=== PATIENT | female | born 1975 | race Two or more races ===

== ENCOUNTER 2020-04-15 19:33 | Emergency (ER) | payer OTHER, MEDICAID ==
[~2020-04-15] VITALS: Ht 167.6 cm; Wt 68.0 kg
[2020-04-15 20:10] VITALS: BP 169/99
[2020-04-15 20:25] LABS: Basophils # (auto) 0.1 10 ^3/uL (0-0.2); Basophils % (auto) 1.1 % (0.0-2.0); Eosinophils # (auto) 0.1 10 ^3/uL (0-0.8); Eosinophils % (auto) 1.7 % (0.0-7.0); Hematocrit 39.9 % (36.0-46.0); Hemoglobin 13.4 g/dL (12.2-16.2); Lymphocytes # (auto) 2.4 10 ^3/uL (0.4-5.4); Lymphocytes % (auto) 30.3 % (10.0-50.0); Mean Corpuscular Hemoglobin 29.2 pg (28.0-32.0); Mean Corpuscular Hgb Conc. 33.5 g/dL (32.0-36.0); Monocytes # (auto) 0.4 10 ^3/uL (0-1.3); Neutrophils % (auto) 61.9 % (37.0-80.0); Nucleated Red Blood Cells % 0.1 %; Platelet Count (auto) 354 10^3/uL (140-450); Red Blood Cells 4.59 10^6/uL (4.0-5.20); Red Cell Distribution Width 13.7 % (11.8-14.3)
[2020-04-15 20:42] LABS: Chloride 109 mmol/L (98-107); Potassium 3.2 mmol/L (3.5-5.1); Sodium 140 mmol/L (136-145)
[2020-04-15 20:44] LABS: INR 0.97 (0.9-1.15); Partial Thromboplastin Time 25.1 sec (23.0-31.2)
[2020-04-15 20:51] LABS: Alanine Aminotransferase 124 U/L (13-56); Albumin 3.6 g/dL (3.4-5.0); Alkaline Phosphatase 83 U/L (45-117); Anion Gap 8 (5-15); Aspartate Aminotransferase 184 U/L (15-37); BUN/Creatinine Ratio 21.1; Beta HCG, Quantitative < 1 mlU/mL (1-3); Bilirubin, Total 0.4 mg/dL (0.2-1.0); Blood Urea Nitrogen 16 mg/dL (7-18); Calcium 8.6 mg/dL (8.5-10.1); Carbon Dioxide 23 mmol/L (21-32); GFR African American 106 mL/min; GFR Non-African American 87 mL/min; Glucose 149 mg/dL (74-106); Magnesium 2.3 mg/dL (1.6-2.6); Thyroid Stimulating Hormone 0.95 uIU/mL (0.358-3.74); Total Protein 7.6 g/dL (6.4-8.2)
== END 2020-04-15 23:39 | disposition home or self-care (01) ==
LOC: EDBD 19:33 → ER 19:36
DX: S29.9XXA Unspecified injury of thorax, initial encounter (principal); S80.02XA Contusion of left knee, initial encounter; S60.222A Contusion of left hand, initial encounter; X58.XXXA Exposure to other specified factors, initial encounter; Y93.89 Activity, other specified; Y92.89 Other specified places as the place of occurrence of the external cause; Y99.8 Other external cause status
CPT/HCPCS: 29505; 36415; 71250; 73130; 73562; 76705; 80053; 83735; 83880; 84443; 84484; 84702; 85025; 85379; 85610; 85730; 93005